=== PATIENT | male | born 1960 | race Caucasian/White ===

== ENCOUNTER 2019-04-19 10:20 | Inpatient (IN) ==
[2019-04-19] MEDS ORDERED: NS 1,000 ML IV ONE (10:51)
[2019-04-19] MEDS ORDERED: HUMULIN R IV ONE (10:51)
[2019-04-19] MEDS ORDERED: HUMULIN R (PARKWAY) ONE (10:52)
[2019-04-19 11:01] LABS: HEMATOCRIT 42.9 % (42.0-52.0); HEMOGLOBIN 15.3 g/dL (14.0-18.0); MCH 27.9 PG (27-31); MCHC 35.7 g/dL (33-37); MCV 78.3 FL (81-99); MPV 10.5 FL (7.4-10.4); RBC 5.48 XMIL (4.7-6.1); RDW 12.8 % (11.5-14.5); WBC 9.4 X1000 (4.8-10.8)
[2019-04-19 11:07] LABS: BE 2.2 mmoll (-3.0-3.0); BLOOD TYPE ARTERIAL; HCO3-(ACT) 26.4 mmoll (20.0-26.0); METHB 1.2 % (0.0-1.5); O2(CT) 20.5 mL/dL (15.0-23.0); PCO2(98.6) 43 mmHg (35-45); PO2(98.6) 75 mmHg (60-100); SAMPLE BLOOD; SAO2 96.6 % (95.0-100.0); pH(98.6) 7.41 (7.35-7.45)
[2019-04-19 11:09] LABS: ALLEN TEST YES; MODALITY ROOM AIR
[2019-04-19 11:10] LABS: ACETONE SERUM NEGATIVE (NEGATIVE)
[2019-04-19 11:20] LABS: ESTIMATED GFR > 60
[2019-04-19 11:27] LABS: URINE SOURCE CLEAN CATCH
[2019-04-19 11:28] LABS: AGAP 13; ALKALINE PHOSPHATASE 105 U/L (32-122); BUN 34 mg/dL (8-22); CALCIUM 9.2 mg/dL (8.8-10.2); CHLORIDE 92 mmol/L (98-107); CK PROFILE 21 U/L (24-204); COSMO 300; CREATININE 0.8 mg/dL (0.7-1.2); GOT 32 U/L (10-34); GPT 83 U/L (10-44); MAGNESIUM 2.1 mg/dL (1.5-2.7); POTASSIUM 5.1 mmol/L (3.5-5.1); SODIUM 132 mmol/L (136-145); TCO2 27 mmol/L (25-35); TOTAL PROTEIN 6.5 g/dL (6.3-8.3)
[2019-04-19 11:30] LABS: BILIRUBIN URINE NEGATIVE (NEGATIVE); BLOOD URINE NEGATIVE (NEGATIVE); COLOR STRAW; GLUCOSE URINE >1000 mg/dL (NEGATIVE); KETONE URINE NEGATIVE (NEGATIVE); LEUKOCYTES URINE NEGATIVE (NEGATIVE); NITRITE URINE NEGATIVE (NEGATIVE); PROTEIN URINE TRACE mg/dL (NEGATIVE); SP GRAVITY URINE 1.033; TURBIDITY URINE CLEAR (CLEAR); UROBILINOGEN URINE NORMAL (NORMAL)
[2019-04-19 11:30] LABS: GLUCOSE 605 mg/dL (70-104)
[2019-04-19 11:31] LABS: UR EPITHELIAL CELLS <10 /HPF (<10); URINE BACTERIA NEGATIVE /HPF; URINE RBC <10 /HPF (<10); URINE WBC <10 /HPF (<10)
[2019-04-19 11:52] LABS: UR AMPHETAMINES QUAL PRESUMPTIVE POSITIVE (NONE DETECT); UR BARBITUATES QUAL NONE DETECTED (NONE DETECT); UR BENZODIAZEPIN QUAL NONE DETECTED (NONE DETECT); UR CANNABINOIDS QUAL NONE DETECTED (NONE DETECT); UR COCAINE QUAL NONE DETECTED (NONE DETECT); UR METHADONE QUAL NONE DETECTED (NONE DETECT); UR METHAMPHETAMINE QUAL PRESUMPTIVE POSITIVE (NONE DETECT); UR OPIATES QUAL NONE DETECTED (NONE DETECT); UR OXYCODONE QUAL NONE DETECTED (NONE DETECT); UR PCP QUAL NONE DETECTED (NONE DETECT); UR PROPOXYPHENE QUAL NONE DETECTED (NONE DETECT); UR TCA QUAL NONE DETECTED (NONE DETECT)
--- NOTE | 2019-04-19 12:26 | EKG Report ---
Test Performed on : 04/19/2019 11:04:54 AM Test Reason : dka Blood Pressure : / mmHG Vent. Rate : 097 BPM Atrial Rate : 097 BPM P-R Int : 152 ms QRS Dur : 098 ms QT Int : 392 ms P-R-T Axes : 056 052 071 degrees QTc Int : 497 ms Normal sinus rhythm. Septal infarct , age undetermined Abnormal ECG When compared with ECG of 27-DEC-2013 09:49, QT has lengthened Unconfirmed Result
--- NOTE | 2019-04-19 12:40 | PROVIDER DOCUMENTATION ---
This chart was entered by Callie Thapa Scribe, acting as scribe for Elmo Irizarry MD. HPI-General Adult - General Chief Complaint: DKA ALERT Stated Complaint: BLOOD SUGAR Time Seen by Provider: 04/19/19 10:37 Source: patient Allergies/Adverse Reactions: Patient Allergies Allergy/AdvReac Type Severity Reaction Status Date / Time No Known Allergies Allergy Verified 04/19/19 10:42 Home Medications: Home Medication List Medication Instructions Recorded Confirmed Last Taken Type NK [No Home Medications] 04/19/19 04/19/19 Unknown History - History of Present Illness -Gen Adult Nature of Presenting Problems: 58 yom presents to the ed from PMD office with elevated BGL increased thirst and urination and on triage BGL greater then 500. pt has noted numbness to feet and hands for 2 months. pt sts years ago he had a dr give him 30 days of medicine for elevated BGL but never went back for f/u Location of Pain/Injury: reports: none Pain Radiation: reports: no radiation Quality of Pain: reports: none Severity: reports: severe (greater 500) Onset/Duration: reports: other (2 months of some sx) Timing: reports: still present Context/Activities at Onset: reports: light activity Modifying Factors: worse with: nothing Associated Symptoms: reports: EENT symptoms, genitourinary problems, other (increased thirst, increased urination and hands and feet numbness). denies: back/neck pain, chest pain, cough, fever/chills, headaches, nausea, shortness of breath, vomiting Similar Symptoms Previously?: No Recently seen or treated by another doctor?: Yes (pmd today sent to ed) - Diabetes Related Context Context: reports: high blood sugar (greater 500 no hx) Review of Systems - Adult - REVIEW OF SYSTEMS - ADULT Constitutional: denies: chills, fever Eyes: reports: see HPI, blurred vision Ears, Nose, Mouth & Throat: reports: no symptoms reported Cardiovascular: denies: chest pain, palpitations Respiratory: denies: cough, shortness of breath, wheezing Gastrointestinal: denies: diarrhea, nausea, vomiting Genitourinary: reports: see HPI, frequency Musculoskeletal: reports: no symptoms reported Integumentary: reports: no symptoms reported Neurological: reports: numbness (hands and feet). denies: paresthesia Psychiatric: reports: no symptoms reported Endocrine: reports: see HPI, increased thirst, polyuria Hematologic/Lymphatic: reports: no symptoms reported Allergic/Immunologic: reports: no symptoms reported All Other Systems: Reviewed and Negative Past History - Adult - PAST MEDICAL HISTORY-ADULT Review of Records: reports: Old Records Reviewed, Nursing Assessment Review, Medications Reviewed, Social history reviewed & non-contributory. Major Childhood Illnesses: reports: denies history Cardiovascular: reports: denies history Respiratory: reports: denies history Gastrointestinal: reports: denies history Genitourinary: reports: denies history Musculoskeletal: reports: denies history Hand Dominance: Right Handed Neurological: reports: denies history Psychiatric: reports: denies history Endocrine/Immune: reports: denies history Other Conditions: reports: denies history - PRIOR SURGERIES/PROCEDURES Surgical/Procedure History: reports: reviewed, not pertinent - IMMUNIZATION STATUS Childhood Immunizations: See Nurse Assessment Flu Vaccine: See Nurse Assessment - FAMILY HISTORY Family History: reviewed, not pertinent - SOCIAL HISTORY Smoking: cigarettes, less than 1 pack/day Provider spent 3-5 mins advising pt. on dangers of tobacco.: Discussed manners to quit use, and f/u contacts for add'l counseling. Substance Use: amphetamines, other (meth) Living Situation: family Physical Exam-General - PHYSICAL EXAM-ADULT Initial Vital Signs Reviewed: Yes (noted BP 152/109) - CONSTITUTIONAL General Appearance: appears well, alert, no apparent distress - EYES Eyes: PERRL/EOMI, pink conjunctivae, other (c/o blurry vision) - HEAD, EARS, NOSE, MOUTH & THROAT HENMT: moist mucous membranes - NECK Neck: non-tender, full range of motion, supple, normal inspection - RESPIRATORY Respiratory: chest non-tender, lungs clear, normal breath sounds - CARDIOVASCULAR Cardiovascular: normal peripheral pulses, regular rate, rhythm - CHEST (BREASTS) Chest/Breast: deferred - GASTROINTESTINAL (ABDOMEN) Abdominal Exam: normal bowel sounds, non tender, soft - GENITOURINARY Male Genitalia: deferred Rectal Exam: deferred Hemoccult Exam: deferred - LYMPHATIC Lymphatic: no adenopathy - MUSCULOSKELETAL Extremity: normal range of motion, non-tender, normal gait, normal inspection, erythema (BUE), other (numbness noted to hands and feet) - SKIN Integumentary: normal color, normal turgor, warm/dry - NEUROLOGIC Neurologic: grossly normal - PSYCHIATRIC Psych/Mental Status: normal mood/affect, normal thought content, normal thought process, oriented x 3 Progress - PLAN OF CARE/RESULTS Progress/Plan/Lab Results: Vital Signs - 8 hr 04/19/19 10:25 Temperature 98 F Pulse Rate 99 H Respiratory Rate 18 Blood Pressure 152/109 O2 Sat by Pulse Oximetry 97 Laboratory Results - last 24 hr 04/19/19 10:27 POC Glucose 500 H D Orders Category Date Time Status Cardiac Monitoring DIRECTED Care 04/19/19 10:33 Active FSBS [Finger Stick Blood Sugar (ED)] DIRECTED Care 04/19/19 10:28 Active FSBS/Accucheck Result Q1H Care 04/19/19 10:33 Active Saline Loc NOW Care 04/19/19 10:33 Active Vital Signs Order Q1H Care 04/19/19 10:33 Active ABG [RESP] Routine Lab 04/19/19 10:33 Ordered ACETONE SERUM [CHEM] Stat Lab 04/19/19 10:33 Uncollected CBC WITH NO DIFF [HEME] Stat Lab 04/19/19 10:33 Uncollected CK PROFILE [SP CHEM] Stat Lab 04/19/19 10:33 Uncollected COMPREHENSIVE METABOLIC PANEL [CHEM] Stat Lab 04/19/19 10:33 Uncollected LACTATE, PLASMA [CHEM] Stat Lab 04/19/19 10:33 Uncollected MAGNESIUM [CHEM] Stat Lab 04/19/19 10:33 Uncollected PHOSPHORUS [CHEM] Stat Lab 04/19/19 10:33 Uncollected TROPONIN T HIGH SENSITIVITY Stat Lab 04/19/19 10:33 Uncollected URINALYSIS [URINALYSIS] Stat Lab 04/19/19 10:33 Uncollected URINE DRUG SCREEN PL Stat Lab 04/19/19 10:33 Uncollected EKG [EKG] Routine Ther 04/19/19 10:33 Ordered Result Diagrams: 04/19/19 10:48 04/19/19 10:48 - REASSESSMENT Reassessment #1 Time Reassessed: 12:11 Status: improving ( at bedside) - EKG 1 Time of EKG reading by physician:: 11:04 EKG Read and Signed by:: Elmo Irizarry EKG Interpretation (*Must complete 3 of following elements*): Abnormal Rate: 97 Rhythm: nsr [place]: normal QRS: normal SD Interval: normal ST Wave: normal Comments: septal infarct, age undetermined Departure - Departure Date of Disposition Decision: 04/19/19 Time of Disposition Decision: 12:11 DIAGNOSIS: Methamphetamine abuse, Tobacco use disorder Uncontrolled diabetes mellitus Qualifiers: Diabetes mellitus type: type 2 Glycemic state: with hyperglycemia Qualified Code(s): E11.65 - Type 2 diabetes mellitus with hyperglycemia Disposition: ADMITTED INPATIENT 09 Certified Medical Emergency: Emergent Condition: Stable Referrals and Follow-Ups: Darrell Macedo CRNP [Primary Care Provider] - Discharge Education: Steps to Quit Smoking, [id number] - Critical Care Note This patient required my direct & personal management of CC.: Yes Total Time (mins): 37 Critical Care Statement: This patient required my direct personal management to treat or rule out processes, the absence of which, could potentiallly result in sudden, clinically significant life or limb threatening deterioration. Attestation - Physician/ RANDALL Attestation Patient care was provided by Advanced Practice Provider:: No The physician spent face to face time with patient:: Yes Advanced Practice Provider documentation review:: Supervising physician onsite and consulted in the evaluation and care of this patient. The physician did have a face to face encounter with the patient. This chart was documented by the indicated scribe, (Callie Thapa Scribe) and accurately reflects the services I performed and decisions made by me, Elmo Irizarry MD, as attested by the provider's signature.
[2019-04-19] MEDS ORDERED: TYLENOL PO PRN (13:04)
[2019-04-19] MEDS ORDERED: ZOFRAN IV PRN (13:04)
[2019-04-19] MEDS ORDERED: LANTUS INSULIN SUBQ ONE (13:05)
[2019-04-19] MEDS: NS 1,000 ML IV SCH (13:39)
[2019-04-19] MEDS ORDERED: DUONEB (A & A) INH PRN (15:57)
[2019-04-19] MEDS ORDERED: NICODERM PATCH TD SCH (16:00)
[2019-04-19] MEDS: HUMALOG (PARKWAY) SUBQ SCH ×2 (16:06→22:19)
[2019-04-19] MEDS ORDERED: CARAFATE PO SCH (21:00)
[2019-04-19] MEDS: PRILOSEC PO SCH (21:06)
--- NOTE | 2019-04-19 21:57 | HISTORY AND PHYSICAL ---
PRIMARY CARE PHYSICIAN: LILIANA Hathaway. CHIEF COMPLAINT: Numbness and heartburn. HISTORY OF PRESENT ILLNESS: Mr. Jimenez is a 58-year-old male with past medical history of GERD and borderline diabetes. The patient presents to the ER today with complaints of numbness and heartburn that he has been having for quite some time now. He did go to see his primary care physician today, Darrell FORD. This is the first time he went to see Darrell FORD. After seeing him, he was told to come to the ER. His complaints of going to the doctor were numbness to his hands and feet that he has been having for quite some time, some extreme heartburn. The patient was noted to have elevated blood sugars, greater than 600.The patient states he was diagnosed with borderline diabetes several years back, he thinks greater than 4 years ago, by Dr. Briscoe. He was prescribed metformin, a 30 day supply. He took the medication for 30 days and since he did not have a primary care physician and Dr. Briscoe was gone, he did not follow up on this. Patient does deny any excessive thirst, increased urination, palpitations, chest pain, orthopnea, PND, leg edema, cough, congestion, shortness of breath, nausea, vomiting, melena, hematemesis, diarrhea, constipation, dysuria, hematuria, syncope, dizziness, vertigo, or any other pertinent symptoms at this time. REVIEW OF SYSTEMS: A 10 point review of systems has been obtained and are negative except what is stated above in HPI. PAST MEDICAL HISTORY: GERD, borderline diabetes. PAST SURGICAL HISTORY: None. FAMILY HISTORY: Noncontributory. SOCIAL HISTORY: The patient does work as a reach lift truck driver. He does smoke a pack of cigarettes per day and has for greater than 40 years. He does not drink any alcohol. He does occasionally take methamphetamines to help with his weakness. ALLERGIES: No known drug allergies. HOME MEDICATIONS: None. PHYSICAL EXAMINATION: VITAL SIGNS: Temperature 97.7 degrees, pulse rate 92, respiratory rate 18, blood pressure 164/90, O2 saturation 95% on room air. GENERAL: This is a 58-year-old male. He is lying in the ER stretcher. He is in no acute distress. He is thin and kind of frail. HEENT: Atraumatic, normocephalic. Pupils equal, round, reactive to light. Mucous membranes are dry. NECK: Supple. No lymphadenopathy. Trachea midline. No JVD. CV: Regular rate and rhythm. No murmurs, gallops, or rubs appreciated. RESPIRATORY: The patient does have a barrel chest. Lung sounds are diminished. Respirations are nonlabored. No accessory muscle usage. GI: Abdomen soft, nontender, nondistended. Bowel sounds present x4. : Patient has no CVA tenderness noted. He is voiding without difficulty. NEUROLOGIC: Patient is awake, alert, oriented, and able to follow all my commands appropriately. MUSCULOSKELETAL: Full distal strength noted. No abnormalities. No deformities. EXTREMITIES: No clubbing, no cyanosis, no edema. DP and PT pulses are present and palpable. SKIN: Warm, dry, intact. There are some bruises noted to the bilateral lower extremities. No diaphoresis. LABS AND DIAGNOSTICS: PH 7.41, pCO2 43, pO2 75, bicarb 26.4, base excess 2.2, oxyhemoglobin 91, carboxyhemoglobin 4.7, O2 saturation 96.6, lactate 1. This is on room air. White blood cell count 9.4, red blood cell count 5.48, hemoglobin 15.3, hematocrit 42.9, platelet count 266,000. Sodium 132, potassium 5.1, chloride 92, carbon dioxide 27, anion gap 13, BUN 34, creatinine 0.8. Estimated GFR is greater than 60. Glucose is 605. Phosphorus is 4.0. Magnesium is 2.1. Troponin is 25. Plasma lactate 1.2. Urinalysis does show trace protein, greater than 1000 glucose. Urine toxicology does show methamphetamines; negative for acetone. ASSESSMENT: 1. Nonketotic hyperglycemia. 2. Dehydration. 3. Chronic obstructive pulmonary disease, without acute exacerbation. 4. Drug abuse. 5. Tobacco dependency. 6. Gastroesophageal reflux disease. PLAN: 1. We will admit this patient to the medical floor. 2. We will start this patient on some intravenous fluid hydration. 3. We started the patient on sliding scale insulin and a diabetic diet. He was given some Lantus in the emergency room, 10 units. 4. We will repeat his labs in the morning. We will do an A1c. 5. Place him on personnel monitor. 6. Place him on breathing treatments every 4 hours as needed. 7. Vital signs every [address] him on TEDs and sequential compression devices. 9. He can be up with assistance. 10. I did provide him with Prilosec twice daily for his gastroesophageal reflux disease. 11. I did provide him with smoking cessation and drug abuse cessation. I did give him a nicotine patch. 12. He can have Zofran as needed for nausea. 13. I did order a TSH for in the morning also. 14. All other further recommendations pending hospital course and laboratory data. Dictated by LILIANA Ramos for Anastacio Cason MD cc: MD Darrell Romo CRNP [facility]
--- NOTE | 2019-04-20 04:01 | HISTORY AND PHYSICAL ---
ADDENDUM: Patient seen and examined by myself. Full note dictated and discussed with nurse practitioner. Patient presented to the hospital with complaints that his blood sugar is elevated. He states initially that he has never been told in the past that he had diabetes. However, he does remember several years ago being put on the medication twice a day for his blood sugar being elevated, but never followed up and he never continued his medication. Currently, he is having increased thirst. Continues to smoke a pack a day and blood pressures are elevated. Blood sugar at 605. Drug screen is also positive methamphetamines. We are going to admit him to the hospital, following him for withdrawal, place him on sliding scale insulin and begin treating his blood sugars. cc: Anastacio Cason MD
[2019-04-20 05:45] LABS: HEMATOCRIT 38.1 % (42.0-52.0); HEMOGLOBIN 13.1 g/dL (14.0-18.0); MCH 27.3 PG (27-31); MCHC 34.4 g/dL (33-37); MCV 79.5 FL (81-99); MPV 10.4 FL (7.4-10.4); RBC 4.79 XMIL (4.7-6.1); RDW 12.7 % (11.5-14.5); WBC 9.66 X1000 (4.8-10.8)
[2019-04-20 06:05] LABS: HEMOGLOBIN A1C 15.5 % (4.8-6.0)
[2019-04-20 06:08] VITALS: BP 133/65
[2019-04-20 06:09] LABS: AGAP 8; ALBUMIN 3.2 g/dL (3.5-5.0); ALKALINE PHOSPHATASE 66 U/L (32-122); BUN 28 mg/dL (8-22); CALCIUM 8.1 mg/dL (8.8-10.2); CHLORIDE 104 mmol/L (98-107); COSMO 285; CREATININE 0.7 mg/dL (0.7-1.2); ESTIMATED GFR > 60; GLUCOSE 231 mg/dL (70-104); GOT 24 U/L (10-34); GPT 57 U/L (10-44); MAGNESIUM 1.8 mg/dL (1.5-2.7); POTASSIUM 3.9 mmol/L (3.5-5.1); SODIUM 136 mmol/L (136-145); TCO2 24 mmol/L (25-35); TOTAL PROTEIN 5.3 g/dL (6.3-8.3)
[2019-04-20] MEDS: PRILOSEC PO SCH (06:18)
[2019-04-20] MEDS: HUMALOG (PARKWAY) SUBQ SCH (06:18)
[2019-04-20] MEDS: NS 1,000 ML IV SCH (06:18)
[2019-04-20] MEDS ORDERED: GLUCOPHAGE PO SCH (08:00)
--- NOTE | 2019-04-22 02:40 | DISCHARGE SUMMARY ---
ADMISSION DATE: 04/19/2019 DISCHARGE DATE: 04/20/2019 DISCHARGE DIAGNOSES: 1. Diabetes with poor home control and A1c of 15.5. 2. Nonketotic hyperglycemia. 3. Dehydration, resolved. 4. Chronic obstructive pulmonary disease without exacerbation. 5. Chronic tobacco abuse. 6. Chronic drug use. CONSULTATIONS: None. PROCEDURES: None. BRIEF HOSPITAL COURSE: The patient was admitted to the hospital secondary to severe hyperglycemia. Was placed on insulin initially. We did have Dietary educate him on a diabetic diet. Thankfully, he continued to improve. On discharge, he is awake, alert. We also discussed with him the perils of smoking as well as illicit substance use. DISPOSITION: Patient will be discharged home. He will continue glimepiride and Glucophage. He will follow up outpatient with primary care of his choice. TIME SPENT: Greater than 30 minutes was spent in total care. cc: Anastacio Cason MD
== END 2019-04-20 09:42 | disposition home or self-care (01) | DRG 639 ==
LOC: P.ED 10:20 → P.MEDSURG 13:20
PROVIDERS: ADMIT Family Medicine